=== PATIENT | male | born 1995 | race Caucasian/White ===

== ENCOUNTER 2021-08-11 14:11 | Emergency (ER) | payer OTHER, SELFPAY ==
[2021-08-11 14:23] VITALS: BP 135/74; PULSE 84; RESP 20; TEMP 36.8; O2SAT 100
--- NOTE | 2021-08-11 14:33 | ED.URI ---
HPI - URI/Sore Throat General Chief Complaint: Upper Respiratory Infection Stated Complaint: Sore Throat,Bilateral Ear Pain,Chills Source: patient Mode of arrival: ambulatory Limitations: no limitations History of Present Illness HPI Narrative: Patient is a 26-year-old male who presents complaining of sore throat and chills x5 days. Patient is vaccinated for Covid x2, denies known exposure to Covid. Patient reports taking [id number] medications with limited relief. Patient has no significant medical history. Related Data Allergies Allergy/AdvReac Type Severity Reaction Status Date / Time No Known Allergies Allergy Verified 08/11/21 14:34 Review of Systems Review of Systems: CONSTITUTIONAL: Denies fever, chills, or sweats. EYES: Denies visual changes, redness, or discharge. ENT: Reports sore throat CARDIOVASCULAR: Denies chest pain, palpitations, or edema. RESPIRATORY: Denies cough or dyspnea. GASTROINTESTINAL: Denies abdominal pain, nausea, vomiting, or diarrhea. GENITOURINARY: Denies dysuria or hematuria. SKIN: Denies rash or itching. MUSCULOSKELETAL: Denies back pain, joint pain, or myalgia. NEUROLOGIC: Denies headache, numbness, dizziness, or weakness. PSYCHIATRIC: Denies anxiety or depression. [facility] Past Medical History Medical History (Updated 08/11/21 @ 14:37 by LEONARD Encarnacion) Heart murmur Family History Family History (Updated 08/11/21 @ 14:35 by LEONARD Encarnacion) Other Hypertension Comments At the time of signature, I have reviewed and agree with nursing past medical, surgical, social, and family history unless otherwise noted. Please see nursing chart for further information. There is no relevant family history pertinent to the presenting complaint. Exam Narrative: GENERAL: Well-appearing, well-nourished, and in no acute distress. HEAD: Normocephalic, atraumatic. EYES: EOMI. No redness or drainage. Conjunctiva are normal. ENT: Mucous membranes pink and moist. Nares clear. No rhinorrhea. TMs normal bilaterally. Throat moderate erythema and edema. Uvula midline. NECK: AROM. Supple. No lymphadenopathy. CHEST: No respiratory distress. HEART: Regular rate and rhythm. EXTREMITIES: Normal range of motion. SKIN: Warm, dry, no rash. NEURO: No focal deficits. Alert and oriented x3. Gait steady. PSYCH: Normal affect. No signs of depression or anxiety. Course Vital Signs Vital signs: Vital Signs Temperature 36.8 C 08/11/21 14:23 Pulse Rate 84 08/11/21 14:23 Respiratory Rate 20 08/11/21 14:23 Blood Pressure 135/74 08/11/21 14:23 Pulse Oximetry 100 08/11/21 14:23 Temperature 36.8 C 08/11/21 14:23 Pulse Rate 84 08/11/21 14:23 Respiratory Rate 20 08/11/21 14:23 Blood Pressure 135/74 08/11/21 14:23 Pulse Oximetry 100 08/11/21 14:23 Reviewed. Patient has been instructed to follow-up with his PCP regarding his blood pressure. MDM - URI/Sore Throat MDM Narrative Medical decision making narrative: Patient's rapid strep is negative at this time. Patient declined Covid testing as he reports low risk, vaccinated and he is working at home. Patient's girlfriend tested negative for Covid yesterday as well. Discussed with patient symptomatic treatment as well as medication instruction. Patient agrees with plan of care. Patient is stable for discharge home with outpatient follow-up as discussed. Differential Diagnosis Differential diagnosis: Likely upper respiratory infection, viral infection, pharyngitis and other (Strep throat, tonsillitis, Covid) Medical Records Attestation: I reviewed the patient's medical records. Lab Data Attestation: I reviewed the patient's lab results. Labs: Strep Screen Presumptive Negative *(Reference Range: Negative)* Reviewed Critical Care Time Critical Care Time Critical Care Time: No Discharge Plan Discharge Clinical Impression: Upper respiratory i
== END 2021-08-11 14:47 | disposition home or self-care (01) ==
PROVIDERS: Emergency Provider Nurse Practitioner
DX: J06.9 Acute upper respiratory infection, unspecified (principal); J03.90 Acute tonsillitis, unspecified; R01.1 Cardiac murmur, unspecified
CPT/HCPCS: 87081; 87880; 99213; G0463

== ENCOUNTER 2022-03-23 21:59 | Emergency (ER) | payer OTHER, SELFPAY ==
--- NOTE | ~2022-03-23 | XR_ITS ---
EXAMINATION: XR shoulder RT min 2V DATE: 03/23/2022 22:19 INDICATION: Right shoulder pain. TECHNIQUE: 4 views of right shoulder were obtained. COMPARISON: None. FINDINGS: Bone alignment is normal. No fracture. Joint spaces are well maintained. IMPRESSION: 1. Normal right shoulder. Reviewed, dictated and finalized at location A. IMPRESSION: 1. Normal right shoulder.
[2022-03-23 22:00] VITALS: BP 126/70; PULSE 77; RESP 16; TEMP 36.7; O2SAT 98
--- NOTE | 2022-03-23 22:57 | ED.UPPEXIN ---
HPI - Extremity Injury (Upper) General Chief Complaint: Extremity Injury, Upper Stated Complaint: right shoulder pain Time Seen by Provider: 03/23/22 22:13 History of Present Illness HPI narrative: 26-year-old male presents emergency room secondary pain to the right shoulder. He was out playing soccer when he ran straight into one of his other teammates who struck him directly onto his right shoulder. Been having some pain and swelling to the area ever since with decreased range of motion. Did not hit his head had no loss of consciousness. Denies any neck, chest, or other extremity pain. This happened earlier today. Denies any prior past medical history: Of any shoulder injuries. Social history:[] Related Data Allergies Allergy/AdvReac Type Severity Reaction Status Date / Time No Known Allergies Allergy Verified 03/23/22 22:03 Review of Systems Review of Systems: APPEARANCE: Well appearing, no pain or distress, well-nourished. Head normocephalic and atraumatic. EYES: PERRLA/EOMI, conjunctivae very clear. NOSE: Normal with no drainage EARS:TMS clear Peyton Magallanes, with good light reflex. THROAT: Pharynx clear, no exudate. NECK: Supple. No adenopathy, no masses. RESPIRATORY: Airway patent, respirations nonlabored. Clear to auscultation bilaterally, no rales, rhonchi, wheezing. CARDIOVASCULAR: Regular rate and rhythm without murmurs, rubs, or gallops. ABDOMINAL: Soft, nontender, nondistended, no hepatosplenomegaly Musculoskeletal: Pain to the right shoulder with decreased range of motion NEURO: Alert. Cranial nerves II through XII intact. Normal gait. Good coordination. Nonfocal examination. SKIN:: Warm, dry. Normal Color PSYCHIATRIC: Normal affect/mood, normal interaction [facility] Past Medical History Medical History (Updated 03/23/22 @ 23:13 by Bob Hung DO) Heart murmur No pertinent past medical history Surgical History Surgical History (Updated 03/23/22 @ 22:58 by Bob Hung DO) No pertinent past surgical history Family History Family History (Updated 08/11/21 @ 14:35 by Jennifer Torres, MATERIAL CONTROL SPECIALIST) Other Hypertension Social History Social History (Updated 03/23/22 @ 22:58 by Bob Hung DO) Smoking status: Never smoker Alcohol intake: current Alcohol use details: Occasional 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 Head normocephalic and atraumatic. EYES: PERRLA/EOMI, conjunctivae very clear. NECK: Supple. No adenopathy, no masses. RESPIRATORY: Airway patent, respirations nonlabored. Clear to auscultation bilaterally, no rales, rhonchi, wheezing. CARDIOVASCULAR: Regular rate and rhythm without murmurs, rubs, or gallops. ABDOMINAL: Soft, nontender, nondistended, no hepatosplenomegaly Musculoskeletal: Some swelling to the right anterior shoulder. No tenderness to palpation along the clavicle. No obvious dislocation or bony abnormalities. Good distal pulses. Good strength to his right hand. No tenderness from decreased range of motion at the right elbow. NEURO: Alert. Cranial nerves II through XII intact. Normal gait. Good coordination. Nonfocal examination. SKIN:: Warm, dry. Normal Color PSYCHIATRIC: Normal affect/mood, normal interaction Course Vital Signs Vital signs: Vital Signs Temperature 98.1 F 03/23/22 22:00 Pulse Rate 77 03/23/22 22:00 Respiratory Rate 16 03/23/22 22:00 Blood Pressure 126/70 03/23/22 22:00 Pulse Oximetry 98 03/23/22 22:00 Oxygen Delivery Room Air 03/23/22 22:00 Temperature 98.1 F 03/23/22 22:00 Pulse Rate 77 03/23/22 22:00 Respiratory Rate 16 03/23/22 22:00 Blood Pressure 126/70 03/23/22 22:00 Pulse Oximetry 98 03/23/22 22:00 Oxygen Delivery Room Air 03/23/22 22:00 MDM - Extremity Injury (Upper) MDM Narrative Medical decision making narrative: X-rays interpreted by me shows no fracture or di
[2022-03-23] MEDS: NAPROXEN 500 MG TABLET PO (23:08)
--- NOTE | 2022-03-23 23:11 | PC.NURSE ---
Assumed care of pt at this time, report received from Edwige WILDER
[2022-03-23 23:22] VITALS: BP 114/66; PULSE 62; RESP 16; O2SAT 98
== END 2022-03-23 23:22 | disposition home or self-care (01) ==
PROVIDERS: Emergency Provider Emergency Medicine
DX: S40.011A Contusion of right shoulder, initial encounter (principal); W51.XXXA Accidental striking against or bumped into by another person, initial encounter; Y93.66 Activity, soccer
CPT/HCPCS: 73030; 99283; A4565; A9270

== ENCOUNTER 2022-12-04 20:19 | Emergency (ER) | payer OTHER, SELFPAY ==
--- NOTE | ~2022-12-04 | CT_ITS ---
CT of the Abdomen and Pelvis: Indication: Abdominal pain Technique: 2.5 mm axial scans were obtained through the abdomen and pelvis following intravenous adm inistration of 100 cc of Omnipaque 350. Dose reduction technique was used on this scan by utilizing a utomated exposure control and iterative reconstruction technique. The dose-length product (DLP) was 2 93.17 mGy-cm. Findings: Scans through the lung bases are unremarkable. The liver, spleen, pancreas, gallbladder, adrenals and kidneys are within normal limits. No evidence of aortic aneurysm. No lymphadenopathy. No bowel obstruction or bowel wall thickening. There is no evidence to suggest acute appendicitis. Images through the pelvis were performed. Urinary bladder unremarkable. Prostate gland and seminal ve sicles are unremarkable. No ascites. Impression: No significant abnormalities seen. Reviewed, dictated and finalized at [facility]. SPRAYER Impression: No significant abnormalities seen.
[2022-12-04 20:46] VITALS: BP 119/76; PULSE 76; RESP 17; TEMP 36.6; O2SAT 99
[2022-12-04 22:17] LABS: Basophils Percent Auto 0.4 % (0.2-1.2); Eosinophils Absolute Auto 0.1 K/mm3 (0-0.3); Eosinophils Percent Auto 1.6 % (0-4.4); Hemoglobin 15.6 g/dL (14.0-18.0); Immature Granulocyte Absolute 0.02 K/mm3 (0.00-0.031); Immature Granulocyte Percent A 0.2 % (0-0.5); Lymphocytes Absolute Auto 2.47 K/mm3 (0.9-3.2); Lymphocytes Percent Auto 30.4 % (18.3-44.2); Mean Corpuscular HGB Conc 33.9 g/dl (32-36); Mean Corpuscular Hemoglobin 30.7 pg (26-34); Mean Corpuscular Volume 90.6 fl (80-100); Monocytes Absolute Auto 0.7 K/mm3 (0.1-0.6); Monocytes Percent Auto 8.9 % (2.6-8.5); Neutrophils Absolute Auto 4.8 K/mm3 (1.3-6.7); Neutrophils Percent Auto 58.5 % (45.5-73.1); Platelet Count Result 274 k/mm3 (150-375); Red Blood Count 5.08 M/mm3 (4.6-6.20); Red Cell Distribution Width 12.3 % (11.5-14.5); White Blood Count 8.1 K/mm3 (4.5-10.0)
[2022-12-04 22:26] LABS: Alanine Aminotransferase 45 U/L (6-50); Alkaline Phosphatase 66 U/L (38-126); Anion Gap 6 mmol/L (8-16); Aspartate Amino Transferase 37 U/L (17-59); Bilirubin,Total 0.6 mg/dL (0.2-1.3); Blood Urea Nitrogen 20 mg/dL (9-20); Calcium 8.9 mg/dL (8.4-10.2); Carbon Dioxide 31 mmol/L (22-30); Chloride 103 mmol/L (98-107); Estimated CRCL calculation 92 ml/min; Estimated Glomerular Filt Rate > 60; Glucose 93 mg/dL (65-110); Lipase 81 U/L (23-300); Potassium 4.3 mmol/L (3.4-5.0); Sodium 140 mmol/L (137-145)
[2022-12-04 22:34] LABS: Appearance Urine Clear (Clear); Bilirubin Urine Negative (Negative); Blood Urine Negative (Negative); Color Urine Yellow (Yellow); Glucose Urine UA Negative (Negative); Ketones Urine Negative (Negative); Leukocyte Esterase Ur Negative LEU/UL (Negative); Nitrate Urine Negative (Negative); Protein Urine Negative (Negative); Specific Grav Ur 1.026 (1.001-1.035); Urobilinogen Urine 0.2 mg/dL (<2.0); pH Urine 6.5 (5.0-9.0)
[2022-12-04 23:03] LABS: Add Urine Microscopic? NO
--- NOTE | 2022-12-05 00:19 | PC.NURSE ---
triage note reviewed and confirmed. First encounter w/ pt. Pt resting comfortably in bed. Pt c/o L flank pain x 2 weeks. States it feels muscular. Pt has no medical problems. Denies any urinary symptoms. Denies any n/v, fever/chills, sob. a&ox4, NAD.
[2022-12-05] MEDS: SODIUM CHLORIDE 0.9% IV 1,000 ML 999 ML IV CONT (01:02)
--- NOTE | 2022-12-05 01:52 | ED.GENADULT ---
HPI - General Adult General Chief complaint: Abdominal Pain Stated complaint: L flank/back pain x2 weeks Time Seen by Provider: 12/05/22 00:37 History of Present Illness HPI narrative: Patient is a 27-year-old gentleman who presents the emergency department with chief complaint of abdominal pain. The patient reports that he is been having discomfort on the left side of his abdomen reports its worse whenever he lays down Related Data Allergies Allergy/AdvReac Type Severity Reaction Status Date / Time No Known Allergies Allergy Verified 03/23/22 22:03 [facility] Past Medical History Medical History (Updated 12/05/22 @ 02:20 by Nicholas Zavala MD) Heart murmur No pertinent past medical history Surgical History Surgical History (Updated 03/23/22 @ 22:58 by Bob Hung DO) No pertinent past surgical history Family History Family History (Updated 08/11/21 @ 14:35 by Jennifer Torres, HEAD AND NECK SURGEON) Other Hypertension Social History Social History (Updated 03/23/22 @ 22:58 by Bob Hung DO) Smoking status: Never smoker Alcohol intake: current Alcohol use details: Occasional 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 Course Vital Signs Vital signs: Vital Signs Temperature 36.6 C 12/04/22 20:46 Pulse Rate 76 12/04/22 20:46 Respiratory Rate 17 12/04/22 20:46 Blood Pressure 119/76 12/04/22 20:46 Pulse Oximetry 99 12/04/22 20:46 Oxygen Delivery Room Air 12/04/22 20:46 Temperature 36.6 C 12/04/22 20:46 Pulse Rate 76 12/04/22 20:46 Respiratory Rate 17 12/04/22 20:46 Blood Pressure 119/76 12/04/22 20:46 Pulse Oximetry 99 12/04/22 20:46 Oxygen Delivery Room Air 12/04/22 20:46 Medical Decision Making [facility] Narrative Medical decision making narrative: Differential diagnosis includes ureterolithiasis, diverticulitis, appendicitis, intra-abdominal infection gastroenteritis mesenteric adenitis epiploic appendagitis Laboratory studies were obtained which showed a white blood cell count of 8.1 with normal hemoglobin electrolytes are within normal limits including normal liver enzymes and normal bilirubin. Patient has a normal lipase urinalysis was negative. CT abdomen pelvis showed no evidence of acute interabdominal pathology Vital Signs Vital Signs: Vital Signs Temperature 36.6 C 12/04/22 20:46 Pulse Rate 76 12/04/22 20:46 Respiratory Rate 17 12/04/22 20:46 Blood Pressure 119/76 12/04/22 20:46 Pulse Oximetry 99 12/04/22 20:46 Oxygen Delivery Room Air 12/04/22 20:46 Temperature 36.6 C 12/04/22 20:46 Pulse Rate 76 12/04/22 20:46 Respiratory Rate 17 12/04/22 20:46 Blood Pressure 119/76 12/04/22 20:46 Pulse Oximetry 99 12/04/22 20:46 Oxygen Delivery Room Air 12/04/22 20:46 Lab Data 12/04/22 22:09 12/04/22 22:09 Labs: Lab Results 12/04/22 12/04/22 12/04/22 Range/Units 22:09 22:09 22:09 WBC 8.1 (4.5-10.0) K/mm3 RBC 5.08 (4.6-6.20) M/mm3 Hgb 15.6 (14.0-18.0) g/dL Hct 46.0 (42.0-52.0) % MCV 90.6 (80-100) fl MCH 30.7 (26-34) pg MCHC 33.9 (32-36) g/dl RDW 12.3 (11.5-14.5) % Plt Count 274 (150-375) k/mm3 MPV 9.0 (7.4-10.4) fl Immature Gran % (Auto) 0.2 (0-0.5) % Neut % (Auto) 58.5 (45.5-73.1) % Lymph % (Auto) 30.4 (18.3-44.2) % [place] % (Auto) 8.9 H (2.6-8.5) % Eos % (Auto) 1.6 (0-4.4) % Baso % (Auto) 0.4 (0.2-1.2) % Lymph # (Auto) 2.47 (0.9-3.2) K/mm3 [place] # (Auto) 0.7 H (0.1-0.6) K/mm3 Eos # (Auto) 0.1 (0-0.3) K/mm3 Baso # (Auto) 0.0 (0.0-0.1) K/mm3 Abs Immat Gran (auto) 0.02 (0.00-0.031) K/mm3 Absolute Neuts (auto) 4.8 (1.3-6.7) K/mm3 Absolute Nucleated RBC 0.0 (0.0-0.012) K/mm3 Nucleated RBC % 0.0 (0.0-0.2) % Sodium 140 (137-145) mmol/L Potassium 4.3 (3.4-5.0) mmol/L Chloride 103 (98-107) mmol/L Carbon Dioxide
[2022-12-05 02:33] VITALS: BP 111/69; PULSE 66; RESP 18; TEMP 36.6; O2SAT 99
== END 2022-12-05 02:34 | disposition home or self-care (01) ==
PROVIDERS: Emergency Medicine; Emergency Provider Emergency Medicine
DX: R10.84 Generalized abdominal pain (principal)
CPT/HCPCS: 36415; 74177; 80053; 81003; 83690; 85025; 96360; 99284; J7030; Q9967

== ENCOUNTER 2023-01-25 20:41 | Emergency (ER) | payer SELFPAY ==
--- NOTE | ~2023-01-25 | XR_ITS ---
EXAM: XR ankle LT min 3V, XR foot LT min 3V DATE: 01/25/2023 21:15 HISTORY: TWISTED ANKLE, SWELLING AND PAIN TO LATERAL ANKLE . COMPARISON: None available. FINDINGS: Normal mineralization. Tiny 1 mm dense fragments adjacent to the medial aspect of the talu s. No lytic or blastic lesion. Joint spaces are maintained. No erosion or periosteal change. Circumfe rential ankle soft tissue swelling, slightly greater medially. IMPRESSION: Tiny ossific fragments medial to the talus may represent small deltoid ligament insertion avulsions, especially if there is medial tenderness and/or eversion mechanism. Reviewed, dictated and finalized at location K. IMPRESSION: Tiny ossific fragments medial to the talus may represent small delt oid ligament insertion avulsions, especially if there is medial tenderness and/ or eversion mechanism.
[2023-01-25 20:47] VITALS: BP 140/69; PULSE 87; RESP 16; TEMP 36.3; O2SAT 100
--- NOTE | 2023-01-25 21:55 | ED.GENADULT ---
HPI - General Adult General Chief complaint: Extremity Injury, Lower Stated complaint: left ankle/foot injury Time Seen by Provider: 01/25/23 21:20 History of Present Illness HPI narrative: This is a 27-year-old male presenting ED with an ankle injury. Patient was playing soccer and had an inversion injury. He has been unable to bear weight since then. He took 400 mg of Motrin. Denies other injuries. Related Data Allergies Allergy/AdvReac Type Severity Reaction Status Date / Time No Known Allergies Allergy Verified 01/25/23 20:42 [facility] Past Medical History Medical History (Updated 01/25/23 @ 21:59 by Edward Brandon MD) Heart murmur No pertinent past medical history Surgical History Surgical History (Updated 03/23/22 @ 22:58 by Bob Hung DO) No pertinent past surgical history Family History Family History (Updated 08/11/21 @ 14:35 by Jennifer Torres, [facility]) Other Hypertension Social History Social History (Updated 03/23/22 @ 22:58 by Bob Hung DO) Smoking status: Never smoker Alcohol intake: current Alcohol use details: Occasional 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 Head: atraumatic. EYES: EOMI, NOSE: Atraumatic NECK: Trachea midline RESPIRATORY: No increased rate of breathing CARDIOVASCULAR: RRR, ABDOMINAL: Non-distended MUSCULOSKELETAl: Exam of the left lower extremity revealed significant swelling over the lateral malleolus. Cap refills less than 2 seconds and pulses are intact. No tenderness over the medial aspect of the malleolus or of the deltoid insertion sites. NEURO: Alert. Moving 4/4 extremities SKIN:: Warm, dry. Normal color PSYCHIATRIC: Normal affect Course Vital Signs Vital signs: Vital Signs Temperature 97.3 F L 01/25/23 20:47 Pulse Rate 87 01/25/23 20:47 Respiratory Rate 16 01/25/23 20:47 Blood Pressure 140/69 01/25/23 20:47 Pulse Oximetry 100 01/25/23 20:47 Oxygen Delivery Room Air 01/25/23 20:47 Temperature 97.3 F L 01/25/23 20:47 Pulse Rate 87 01/25/23 20:47 Respiratory Rate 16 01/25/23 20:47 Blood Pressure 140/69 01/25/23 20:47 Pulse Oximetry 100 01/25/23 20:47 Oxygen Delivery Room Air 01/25/23 20:47 Medical Decision Making MDM Narrative Medical decision making narrative: -Presentation: 27-year-old male presenting with a inversion injury the ankle -DDX includes but is not limited to: ankle sprain, fracture -Co-morbidities complicating care: athlete -Social determinants of health: unemployed, lives alone -External Chart Review: none -Hx from independent Sources: none -Discussion of Management/Consultants: none -Independent interpretation of studies: ankle x-ray showed some old findings over the medial aspect of the ankle but no acute fractures. Dx tests considered but not ordered: None -Procedures: none -Interventions: 400 mg Motrin, 1000 mg Tylenol -Shared decision making / Disposition: patient will be discharged with an Janes bandage wrap and NSAIDs. He can follow up with Orthopedics if his injury does not improve over the next week. -RX Motrin, Tylenol Vital Signs Vital Signs: Vital Signs Temperature 97.3 F L 01/25/23 20:47 Pulse Rate 87 01/25/23 20:47 Respiratory Rate 16 01/25/23 20:47 Blood Pressure 140/69 01/25/23 20:47 Pulse Oximetry 100 01/25/23 20:47 Oxygen Delivery Room Air 01/25/23 20:47 Temperature 97.3 F L 01/25/23 20:47 Pulse Rate 87 01/25/23 20:47 Respiratory Rate 16 01/25/23 20:47 Blood Pressure 140/69 01/25/23 20:47 Pulse Oximetry 100 01/25/23 20:47 Oxygen Delivery Room Air 01/25/23 20:47 Discharge Plan Discharge Clinical Impression: Ankle sprain and strain Patient Disposition: Home, Self-Care Condition: Stable Instructions: Antibiotic Form, Ankle Sprain (DC) Additional Instructions: you were see
[2023-01-25] MEDS: ACETAMINOPHEN 500 MG TABLET 1000 MG PO (22:04)
[2023-01-25] MEDS: IBUPROFEN 400 MG TABLET PO (22:04)
== END 2023-01-25 22:27 | disposition home or self-care (01) ==
PROVIDERS: Emergency Provider Emergency Medicine
DX: S93.402A Sprain of unspecified ligament of left ankle, initial encounter (principal); S96.912A Strain of unspecified muscle and tendon at ankle and foot level, left foot, initial encounter; X50.0XXA Overexertion from strenuous movement or load, initial encounter; Y93.66 Activity, soccer
CPT/HCPCS: 73610; 73630; 99283; A9270

== ENCOUNTER 2025-05-27 05:39 | Emergency (ER) | payer OTHER, SELFPAY ==
--- OUTSIDE RECORDS SUMMARY | 2025-05-22 02:21 | XMS_ITS | Continuity of Care Document ---
Author Organization [facility] Address [address] [place] [address] [address] [place] [address] Phone Care Team Providers Care Welder Machine Operator Name Role Phone Tejal PT, DPT, Annemarie Unavailable Unavaila ble Procedures Procedure Date Therapeutic Activities Neuromuscular Re-Ed Therapeutic Exercise Therapeutic Activities Neuromuscular Re-Ed Therapeutic Exercise Therapeutic Activities Neuromuscular Re-Ed Therapeutic Exercise Therapeutic Activities Neuromuscular Re-Ed Therapeutic Exercise Therapeutic Activities Neuromuscular Re-Ed Therapeutic Exercise Therapeutic Activities Neuromuscular Re-Ed Therapeutic Exercise Manual Therapy PT Evaluation Moderate Complexity Therapeutic Activities Therapeutic Exercise Manual Therapy Therapeutic Activities Neuromuscular Re-Ed Therapeutic Exercise Therapeutic Activities Neuromuscular Re-Ed Therapeutic Exercise PT Evaluation Moderate Complexity Neuromuscular Re-Ed Therapeutic Exercise Advance Directives Directive Yes / No Effective Date File Name No Information Encounters Encounter Description Practice Location Reason(s) For Visit Diagnoses Date Provider Providers Copied on Encounter [facility], [address] [place] [address] [address], [place], [place], [id number], tel:[phone] [place] No Information 5 Toure Annemarie. . [facility], [address], [place], [place], [id number], tel:[phone] [place] No Information 5 Toure Annemarie. . Referring Provider: Access Direct. [facility], [place], [place], [id number], tel:[phone] [place] No Information 5 Jennyfer Darren. . Referring Provider: [facility]. [facility], [place], [place], [id number], tel:[phone] [place] No Information 5 Jennyfer Darren. . Referring Provider: [facility]. [facility], [place], [place], [id number], tel:[phone] [place] No Information 5 Jennyfer Darren. . Referring Provider: [facility]. [facility], [place], [place], [id number], tel:[phone] [place] No Information 5 Toure Annemarie. . Referring Provider: [facility]. [facility] [facility], [place], [place], [id number], tel:[phone] [place] No Information 0- 5 Toure Annemarie. . Referring Provider: [facility]. [facility] [facility] [address], [place], [place], [id number], tel:[phone] [place] No Information 5 Toure Annemarie. . Referring Provider: [facility]. [facility] [facility] [place], [place], [place], [id number], tel:[phone] [place] No Information 4 Lb Fu. . Referring Provider: [facility]. [facility] [place], [place], [place], [id number], tel:[phone] [place] No Information 4 Jose Luis Encinas. . Referring Provider: [facility]. [facility] [place], [place], [place], [id number], tel:[phone] [place] No Information 4 Lb Fu. . Referring Provider: [facility]. Family History Family Member Type Diagnosis Age At Onset No Information Payers Payer name Insurance type Covered democrat ID Palmira narayan(s) [facility] [id number] Social History Type Description Quantity Date Captured Comments Sex Male Smoking Status No Information Chief Complaint And Reason For Visit No Information Reason For Referral Reason For Referral No Information History Of Present Illness Encounter Date Complaint History Of Prese nt Illness No Information Functional Status Date Functional Assessmen t No Information Instructions Date Instruction Additional Infor mation No Information Assessments Type Assessment Date No Information Patient Care Teams Name Effective Dates (start - stop) Status Members No Information
--- OUTSIDE RECORDS SUMMARY | 2025-05-22 02:21 | XMS_ITS | Continuity of Care Document ---
Author Organization [facility] Address [address] [place] [address] [address] [place] [address] Phone Care Team Providers Care Application Developer Manager Name Role Phone Tejal PT, DPT, Annemarie [...] Diagnoses Date Provider Providers Copied on Encounter [facility], [address] [place] [address] [address], [place], [place], [id number], tel:[phone] [place] No Information 5 Toure Annemarie. . [facility], [address], [place], [place], [id number], tel:[phone] [place] No Information 5 Toure Annemarie. . Referring Provider: Access Direct. [facility], [place], [place], [id number], tel:[phone] [place] No Information 5 Jennyfer Darren. . Referring Provider: Access Direct. [facility] [place], [place], [place], [id number], tel:[phone] [place] No Information 5 Jennyfer Darren. . Referring Provider: Access Direct. [facility], [place], [place], [id number], tel:[phone] [place] No Information 5 Jennyfer Darren. . Referring Provider: Access Direct. [facility], [place], [place], [id number], tel:[phone] [place] No Information 5 Toure Annemarie. . Referring Provider: Access Direct. [facility] [facility], [place], [place], [id number], tel:[phone] [place] No Information 0- 5 Toure Annemarie. . Referring Provider: Access Direct. [facility] [facility] [place], [place], [place], [id number], tel:[phone] [place] No Information 5 Toure Annemarie. . Referring Provider: Access Direct. [facility] [facility] [place], [place], [place], [id number], tel:[phone] [place] No Information 4 Lb Fu. . Referring Provider: [facility] Direct. [facility] [place] [employer] [address], [place], [place], [id number], tel:[phone] [place] No Information 4 Jose Luis Encinas. . Referring Provider: Access Direct. [facility] [place] [employer] [address], [place], [place], [id number], tel:[phone] [place] No Information 4 Lb Fu. . Referring Provider: Access Direct. Family History Family Member Type Diagnosis Age At Onset No Information Payers Payer name Insurance type Covered republican ID Palmira narayan(s) [facility] [id number] Social History Type Description Quantity Date Captured [...]
--- NOTE | ~2025-05-27 | XR_ITS ---
EXAMINATION: XR chest 1V portable 05/27/2025 06:18 INDICATION: Fever and infection PROCEDURE: AP portable chest COMPARISON: No prior studies for comparison. FINDINGS: The lungs are clear. The cardiomediastinal silhouette is within normal limits. There are no pleural effusions. There is no pneumothorax suspected. IMPRESSION: 1: NO ACUTE CARDIOPULMONARY DISEASE. Reviewed, dictated and finalized at location O.
--- OUTSIDE RECORDS SUMMARY | 2025-05-27 05:40 | XMS_ITS | Clinical Summary ---
Author Organization [facility] Address [address] [place] [address] Care Team Providers Care Shorthand Reporter Name Role Phone Fred Tejada MD Primary Care Provider [phone] Allergies No known active allergies Medications naproxen (NAPROSYN) 500 mg tablet Take 1 tablet (500 mg total) by mouth 12/28/2023 Active Active Problems Problem Noted Date Diagnosed Date Chest pain 08/29/2014 Overview (01/10/2017): Chest pain Family History Medical History Relation Name Comments Heart attack Father 2 Myocardial infa rction; Cause of : Myocardial infarction Heart disease Mother's Brother 2 Cardiova scular disease; Cause of : Cardiovascular disease Relation Name Status Comments Father 1 Father 2 Mother's Brother 1 Mother's Brother 2 Social History Tobacco Use Types Packs/Day Years Used Date Smoking Tobacco: Never Smokeless Tobacco: Never Tobacco Cessation:Counseling Given: Not Answered Alcohol Use Standard Drinks/Week Comments No 0 (1 standard drink = 0.6 oz pur e alcohol) Sex and Gender Information Value Date Recorded Sex Assigned at Not on file Legal Sex Male 8:54 AM [employer] Gender Identity Not on file Sexual Orientation Not on file Obstetrics History Last Filed Vital Signs Vital Sign Reading Time Taken Comments Blood Pressure 110/72 07/03/2014 1:11 PM CDT Pulse 70 07/03/2014 1:11 PM CDT Temperature - - Respiratory Rate - - Oxygen Saturation - - Inhaled Oxygen Concentration - - Weight 81.6 kg (180 lb) 02/07/2024 11:38 AM CDT Height 177.8 cm (5' 10) 02/07/2024 11:38 AM CDT Body Mass Index 25.83 02/07/2024 11:38 AM CDT Plan of Treatment Health Maintenance Due Date Last Done Comments Depression Screening 1994 Hepatitis C Screening 1994 DTaP/Tdap/Td Vaccine (1 - Tdap) 2005 Varicella Vaccines (1 of 2 - 13+ 2-dose series) 2007 Hepatitis B Screening 2012 Regular Well Visit/Exam 18-64 2012 HPV Vaccines (1 - 3-dose SCDM series) 2021 Influenza Vaccine (#1) 2025 9, 07/16/2017, 07/05/2016, Additional history exists Pneumococcal vaccine <65 Aged Out No longer eligible based on patient's age to complete this topic Insurance [facility] [place] [address] [facility] Care Teams Shorthand Reporter Relationship Specialty Start Date End Date Fred Tejada MD PCP - General 07/03/14
[2025-05-27 05:44] VITALS: BP 109/70; PULSE 98; RESP 18; TEMP 37.4; O2SAT 96
[2025-05-27] MEDS: SODIUM CHLORIDE 0.9% IV 1,000 ML 999 ML IV CONT ×2 (06:07→06:46)
[2025-05-27 06:14] LABS: Hematocrit 45.4 % (42.0-52.0); Hemoglobin 15.1 g/dL (14.0-18.0); Immature Granulocyte Percent A 0.3 % (0-0.5); Lymphocytes Absolute Auto 0.85 K/mm3 (0.9-3.2); Mean Corpuscular HGB Conc 33.3 g/dl (32-36); Mean Corpuscular Hemoglobin 29.8 pg (26-34); Mean Corpuscular Volume 89.5 fl (80-100); Nucleated Red Blood Cells Absolute Auto 0.000 K/mm3 (0.0-0.012); Nucleated Red Blood Cells Perc 0.0 % (0.0-0.2); Platelet Count Result 249 k/mm3 (150-375); Red Blood Count 5.07 M/mm3 (4.6-6.20); White Blood Count 9.6 K/mm3 (4.5-10.0)
--- NOTE | 2025-05-27 06:17 | PC.NURSE ---
Pt attempted to give us a urine sample at this time and was unsuccessful. Pt states he will try again after fluids are started.
--- OUTSIDE RECORDS SUMMARY | 2025-05-27 06:23 | XMS_ITS | Clinical Summary ---
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
[2025-05-27 06:32] LABS: Alanine Aminotransferase 27 U/L (6-50); Albumin Level 4.6 g/dL (3.5-5.1); Alkaline Phosphatase 64 U/L (38-126); Anion Gap 10 mmol/L (4-12); Aspartate Amino Transferase 33 U/L (17-59); Bilirubin,Total 0.8 mg/dL (0.2-1.3); Blood Urea Nitrogen 15 mg/dL (9-20); Calcium 9.0 mg/dL (8.4-10.2); Carbon Dioxide 26 mmol/L (22-30); Chloride 100 mmol/L (98-107); Estimated CRCL calculation 65 ml/min; Estimated Glomerular Filt Rate 53; Glucose 120 mg/dL (65-110); Magnesium 1.9 mg/dL (1.6-2.3); Potassium 3.7 mmol/L (3.4-5.0); Sodium 136 mmol/L (137-145); Total Protein 7.9 g/dL (6.3-8.2)
[2025-05-27 06:41] LABS: Influenza A QL RT-PCR Negative (Negative); Influenza B QL RT-PCR Negative (Negative); SARS-CoV-2 RNA PCR Negative (Negative)
--- NOTE | 2025-05-27 06:43 | ED_ITS ---
HPI - Fever General Chief Complaint: Fever Stated Complaint: fever Time Seen by Provider: 05/27/25 05:40 History of Present Illness HPI Narrative: Patient is a 30-year-old male who presents the emergency department this evening complaining of feeling dehydrated. When asked malloy this, patient states that he has just not been drinking enough water. States that he has been feeling under the weather and has been having fevers and chills at home. States that he did have a temperature at home that was 101.3? F. Patient did take Tylenol prior to arrival. Denies any cough or shortness of breath, any URI symptoms, any dysuria or hematuria, any nausea vomiting or diarrhea. Denies any sick contacts at home. No additional symptoms or concerns at this time. Related Data Allergies Allergy/AdvReac Type Severity Reaction Status Date / Time No Known Allergies Allergy Verified 01/25/23 20:42 Review of Systems 2 Review of Systems: All systems are reviewed and are negative unless stated otherwise in the HPI. 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 HEENT: PERRL, no rhinorrhea, no post nasal drip, oropharynx clear. Neck: Trachea midline, no JVD, no lymphadenopathy. Cardiovascular: Regular rate and rhythm, no murmurs, rubs or gallops, no peripheral edema. Respiratory: Clear to auscultation bilaterally, no tachypnea, no wheezing, no rhonchi, no rubs, no respiratory distress. Abdomen: Soft, nontender, nondistended, no rebound, no guarding, no peritoneal signs. Musculoskeletal: No joint swelling or deformity, normal muscle tone. Skin: No rashes or petechia, no signs of infection. Psychiatric: Alert and oriented, normal behavior and judgment for situation. Neurological: Alert and oriented to person, place, and time. Follows all commands. No focal deficits, speech is clear and fluent. Course Vital Signs Vital signs: Vital Signs Temperature 99.3 F 05/27/25 05:44 Pulse Rate 98 05/27/25 05:44 Respiratory Rate 18 05/27/25 05:44 Blood Pressure 109/70 05/27/25 05:44 Pulse Oximetry 96 05/27/25 05:44 Oxygen Delivery Room Air 05/27/25 05:44 Temperature 99.3 F 05/27/25 05:44 Pulse Rate 76 05/27/25 06:46 Respiratory Rate 18 05/27/25 06:46 Blood Pressure 120/82 05/27/25 06:46 Pulse Oximetry 100 05/27/25 06:46 Oxygen Delivery Room Air 05/27/25 05:44 MDM - Fever MDM Narrative Medical decision making narrative: The patient was evaluated by myself in the emergency department. History is obtained from patient who is an independent historian and physical exam was performed. External medical records were reviewed at this time. IV was established and pertinent tests were ordered. Patient was administered 2L IVF bolus with normal saline. Laboratory results obtained revealing a creatinine of 1.53 otherwise unremarkable. Urinalysis unremarkable. Viral swabs negative. Imaging studies obtained included CXR which was independently interpreted by me revealing no acute process, which is pending final radiology interpretation. Differential diagnosis considerations include dehydration, viral syndrome, ROB. Comorbidities impacting this visit include none. I have evaluated and discussed social determinants of health with the patient that could potentially impact subsequent diagnosis and treatment plans. On repeat assessment of the patient, reevaluation revealed that the patient is doing well and is in no acute distress. Patient symptoms have improved since he arrived to our emergency department. Repeat vital signs were all reviewed and noted to be stable. Differential diagnosis and treatment plan were discussed with the patient at bedside. Patient agrees with discussion and after shared medical decision making agrees with discharge. All questions were answered to the patient's satisfaction. Patient will follow up with PCP in 3-5 days. Patient was provided with strict return precautions and instructed to return to the emergency department if any new or worsening symptoms develop. The patient was discharged in stable condition. Lab Data 05/27/25 06:09 05/27/25 06:09 Labs: Lab Results 05/27/25 05/27/25 Range/Units 06:02 06:09 WBC 9.6 (4.5-10.0) K/mm3 RBC 5.07 (4.6-6.20) M/mm3 Hgb 15.1 (14.0-18.0) g/dL Hct 45.4 (42.0-52.0) % MCV 89.5 (80-100) fl MCH 29.8 (26-34) pg MCHC 33.3 (32-36) g/dl RDW 12.2 (11.5-14.5) % Plt Count 249 (150-375) k/mm3 MPV 9.2 (7.4-10.4) fl Immature Gran % (Auto) 0.3 (0-0.5) % Neut % (Auto) 77.2 H (45.5-73.1) % Lymph % (Auto) 8.8 L (18.3-44.2) % [place] % (Auto) 13.4 H (2.6-8.5) % Eos % (Auto) 0.1 (0-4.4) % Baso % (Auto) 0.2 (0.2-1.2) % Lymph # (Auto) 0.85 L (0.9-3.2) K/mm3 [place] # (Auto) 1.3 H (0.1-0.6) K/mm3 Eos # (Auto) 0.0 (0-0.3) K/mm3 Baso # (Auto) 0.0 (0.0-0.1) K/mm3 Abs Immat Gran (auto) 0.03 (0.00-0.031) K/mm3 Absolute Neuts (auto) 7.4 H (1.3-6.7) K/mm3 Absolute Nucleated RBC 0.000 (0.0-0.012) K/mm3 Nucleated RBC % 0.0 (0.0-0.2) % Sodium 136 L (137-145) mmol/L Potassium 3.7 (3.4-5.0) mmol/L Chloride 100 (98-107) mmol/L Carbon Dioxide 26 (22-30) mmol/L Anion Gap 10 (4-12) mmol/L BUN 15 D (9-20) mg/dL Creatinine 1.53 H (0.7-1.3) mg/dL Estim Creat Clear Calc 65 ml/min Estimated GFR 53 L (59 - ) Glucose 120 H (65-110) mg/dL Calcium 9.0 (8.4-10.2) mg/dL Magnesium 1.9 (1.6-2.3) mg/dL Total Bilirubin 0.8 (0.2-1.3) mg/dL AST 33 (17-59) U/L ALT 27 (6-50) U/L Alkaline Phosphatase 64 (38-126) U/L Total Protein 7.9 (6.3-8.2) g/dL Albumin 4.6 (3.5-5.1) g/dL Influenza A (RT-PCR) Negative (Negative) Influenza B (RT-PCR) Negative (Negative) SARS-CoV-2 RNA (RT-PCR) Negative (Negative) Discharge Plan Discharge Clinical Impression: Dehydration, ROB (acute kidney injury) Patient Disposition: Home Condition: Improved Instructions: Antibiotic Form, Dehydration (DC), Acute Kidney Injury (DC) Additional Instructions: Please follow-up with the family doctor within the next 3-5 days. Return to emergency department if any new or worsening symptoms develop. Maintain your oral hydration by drinking lots of fluids. Patient Language: Danish Prescriptions: No Action amoxicillin 500 mg capsule 500 mg PO Q12H 7 Days Qty: 14 0RF prednisone 20 mg tablet 40 mg PO DAILY 5 Days Qty: 10 0RF naproxen 500 mg tablet 500 mg PO BID PRN (Reason: pain) Qty: 20 0RF ibuprofen 800 mg tablet 800 mg PO TID PRN (Reason: pain) 7 Days Qty: 21 0RF acetaminophen 500 mg tablet 1,000 mg PO TID PRN (Reason: isaac) 7 Days Qty: 42 0RF Follow-up/Referrals: PHYSICIAN,CLINICAL DOCUMENT IMPROVEMENT EDUCATOR [Primary Care Provider, Internal Medicine] Anton Alcantara MD [Physician, Family Practice] - 3 Days Time of Disposition: 06:56
[2025-05-27 06:46] VITALS: BP 120/82; PULSE 76; RESP 18; O2SAT 100
[2025-05-27 07:10] VITALS: BP 113/60; PULSE 80; RESP 18; TEMP 37.6; O2SAT 100
[2025-05-27 08:12] VITALS: BP 111/69; PULSE 82; RESP 18; O2SAT 100
== END 2025-05-27 08:14 | disposition home or self-care (01) ==
PROVIDERS: Emergency Provider Emergency Medicine
DX: N17.9 Acute kidney failure, unspecified (principal); E86.0 Dehydration; Z20.822 Contact with and (suspected) exposure to COVID-19
CPT/HCPCS: 36415; 71045; 80053; 83735; 85025; 87636; 96360; 96361; 99283; J7030